=== PATIENT | male | born 1960 | race Caucasian/White ===

== ENCOUNTER 2016-08-18 06:45 | Day surgery (SDC) | payer OTHER ==
[~2016-08-18] VITALS: Ht 177.8 cm; Wt 86.2 kg
[~2016-08-18 06:45] MED LIST: ALLEGRA ALLERG180 MG PO; ASPIR 8181 M1 PO; ATORVASTATIN CA80 MG PO; DEXAMETHASONE1 MG PO; Habitrol,Nicoderm CQ TD; ISOSORBIDE MONO30 MG PO; LEVO-T137 MCG PO; LEVOTHYROXINE50 MCG PO; LOPRESSOR12.5 MG PO; Levothroid,Synthroid PO; METOPROLOL SUCC50 MG PO; MULTIVITAMIN1 EAC2 PO; NAPROSYN500 MG PO; NITROSTAT,NITR0.4 M1 SL; PEN-VEE K,VEET500 MG PO; PLAVIX75 MG PO; PREDNISONE20 MG PO; Proventil,Ventolin H IH; SPIRIVA1 INHALATI IH; VENTOLIN HFA18 GM IH; ZANTAC150 MG PO; Zestril,Prinivil PO; Zocor PO
== END 2016-08-18 08:55 | disposition home or self-care (01) ==
LOC: PAIN 06:45 → SDC 07:30 → PAIN 08:55
DX: M47.812 Spondylosis without myelopathy or radiculopathy, cervical region (principal); F41.9 Anxiety disorder, unspecified; M50.20 Other cervical disc displacement, unspecified cervical region; M79.1 Myalgia; F17.200 Nicotine dependence, unspecified, uncomplicated; I25.10 Atherosclerotic heart disease of native coronary artery without angina pectoris; Z95.5 Presence of coronary angioplasty implant and graft; Z95.1 Presence of aortocoronary bypass graft; G89.29 Other chronic pain; J43.9 Emphysema, unspecified; J44.9 Chronic obstructive pulmonary disease, unspecified; E78.5 Hyperlipidemia, unspecified; E03.9 Hypothyroidism, unspecified; E06.3 Autoimmune thyroiditis; I25.2 Old myocardial infarction; Z79.82 Long term (current) use of aspirin
CPT/HCPCS: J1030; J2250; J3010; S0020

== ENCOUNTER 2016-08-25 07:11 | Day surgery (SDC) | payer OTHER ==
[~2016-08-25] VITALS: Ht 177.8 cm; Wt 86.2 kg
== END 2016-08-25 08:57 | disposition home or self-care (01) ==
LOC: PAIN 07:11 → SDC 08:00 → PAIN 08:00
DX: M50.11 Cervical disc disorder with radiculopathy, high cervical region (principal); M50.121 Cervical disc disorder at C4-C5 level with radiculopathy; M54.5 Low back pain; M25.512 Pain in left shoulder; G89.29 Other chronic pain; J45.909 Unspecified asthma, uncomplicated; E03.9 Hypothyroidism, unspecified; I25.2 Old myocardial infarction; Z95.5 Presence of coronary angioplasty implant and graft; R73.03 Prediabetes; F17.210 Nicotine dependence, cigarettes, uncomplicated; Z79.82 Long term (current) use of aspirin; Z95.1 Presence of aortocoronary bypass graft; Z79.02 Long term (current) use of antithrombotics/antiplatelets; Z79.899 Other long term (current) drug therapy
CPT/HCPCS: J1030; J2250; J3010; S0020

== ENCOUNTER 2016-11-30 06:53 | Day surgery (SDC) | payer OTHER ==
[~2016-11-30] VITALS: Ht 177.8 cm; Wt 93.9 kg
== END 2016-11-30 09:03 | disposition home or self-care (01) ==
LOC: PAIN 06:53 → SDC 07:30 → PAIN 09:03 → SDC 12-03 07:30
PROC: 01513ZZ Destruction of Cervical Nerve, Percutaneous Approach (ICD-10-PCS; principal; 2016-11-30)
DX: M47.22 Other spondylosis with radiculopathy, cervical region (principal); M12.88 Other specific arthropathies, not elsewhere classified, other specified site; F41.9 Anxiety disorder, unspecified; F17.200 Nicotine dependence, unspecified, uncomplicated; I25.10 Atherosclerotic heart disease of native coronary artery without angina pectoris; Z95.5 Presence of coronary angioplasty implant and graft; Z95.1 Presence of aortocoronary bypass graft; G89.29 Other chronic pain; M54.5 Low back pain; E03.9 Hypothyroidism, unspecified; E78.5 Hyperlipidemia, unspecified; Z79.82 Long term (current) use of aspirin
CPT/HCPCS: J1030; J2250; J3010; S0020

== ENCOUNTER 2016-12-07 07:48 | Day surgery (SDC) | payer OTHER ==
[~2016-12-07] VITALS: Ht 177.8 cm; Wt 93.9 kg
== END 2016-12-07 09:57 | disposition home or self-care (01) ==
LOC: PAIN 07:48
DX: M47.22 Other spondylosis with radiculopathy, cervical region (principal); M50.11 Cervical disc disorder with radiculopathy, high cervical region; M54.2 Cervicalgia; G89.29 Other chronic pain; M54.5 Low back pain; E78.5 Hyperlipidemia, unspecified; I25.10 Atherosclerotic heart disease of native coronary artery without angina pectoris; J44.9 Chronic obstructive pulmonary disease, unspecified; E03.9 Hypothyroidism, unspecified; Z95.1 Presence of aortocoronary bypass graft; Z95.5 Presence of coronary angioplasty implant and graft; F17.200 Nicotine dependence, unspecified, uncomplicated; Z79.82 Long term (current) use of aspirin; Z79.02 Long term (current) use of antithrombotics/antiplatelets; E27.8 Other specified disorders of adrenal gland
CPT/HCPCS: J1030; J2250; J3010; S0020

== ENCOUNTER 2017-01-02 22:01 | Emergency (ER) | payer OTHER ==
[~2017-01-02] VITALS: Ht 177.8 cm; Wt 93.5 kg
[2017-01-02] MEDS ORDERED: AMOXICILLIN500 MG PO (22:50)
[2017-01-02] MEDS ORDERED: METOPROLOL SUCC50 MG PO (22:56)
[2017-01-02 23:10] LABS: HEMATOCRIT 43.6 % (38.0-50.0); MCH 31.1 PG (29.0-34.0); MCHC 33.7 G/DL (30.0-36.0); MCV 92.4 FL (86-99); MEAN PLAT.VOLUME 9.5 uM^3 (9.0-12.4); PLATELET COUNT 284 K/uL (156-360); RBC DIS.WIDTH-CV 12.8 % (11.8-14.6); RBC DIS.WIDTH-SD 43.7 % (39-53); RED BLOOD COUNT 4.72 M/uL (4.00-5.50); WHITE BLOOD COUNT 9.3 K/uL (4.1-10.2)
[2017-01-02 23:23] LABS: CHLORIDE 107 mEq/L (99-109); POTASSIUM 4.4 mEq/L (3.7-5.4); SODIUM 146 mEq/L (136-147)
[2017-01-02 23:25] LABS: GLUCOSE 96 mg/dL (70-99)
[2017-01-02 23:27] LABS: ANION GAP 11 MEQ/L (2-14); TOTAL BILIRUBIN 0.7 mg/dL (0.0-1.0)
[2017-01-02 23:29] LABS: ALKALINE PHOSPHATASE 153 IU/L (3-129); GFR ESTIMATE (CALCULATED) > 59 mL/min/
[2017-01-02 23:30] LABS: UREA NITROGEN (BUN) 20 mg/dL (9-23)
[2017-01-03 01:03] LABS: ERTH.SED.RATE 17 MM/HR (0-20)
[2017-01-03] MEDS ORDERED: PERCOCET 5/31 TABLET PO (01:24)
[2017-01-03] MEDS ORDERED: CLEOCIN300 MG PO (01:24)
[2017-01-03] MEDS ORDERED: MOTRIN800 MG PO (01:28)
[2017-01-03 01:45] VITALS: BP 112/70
[2017-01-03 02:21] LABS: C-REACTIVE PROTEIN 4.5 MG/L (0-10)
== END 2017-01-03 01:46 | disposition home or self-care (01) ==
LOC: EME 22:01 → EXP 22:01
DX: K04.7 Periapical abscess without sinus (principal); R51 Headache; R68.84 Jaw pain; J45.909 Unspecified asthma, uncomplicated; I25.2 Old myocardial infarction; Z95.1 Presence of aortocoronary bypass graft; Z79.82 Long term (current) use of aspirin; F17.200 Nicotine dependence, unspecified, uncomplicated
CPT/HCPCS: 80053; 85027; 85651; 86140; 99281; 99284

== ENCOUNTER 2017-06-06 21:57 | Emergency (ER) | payer OTHER ==
[~2017-06-06] VITALS: Ht 177.8 cm; Wt 94.2 kg
[~2017-06-06 21:57] MED LIST changes: +AMOXICILLIN500 MG PO; +CLEOCIN300 MG PO; +MOTRIN800 MG PO; +PERCOCET 5/31 TABLET PO
[2017-06-07] MEDS ORDERED: MOTRIN600 MG PO (00:06)
[2017-06-07 00:13] VITALS: BP 136/87
== END 2017-06-07 00:13 | disposition home or self-care (01) ==
LOC: EME 21:57
DX: S42.142A Displaced fracture of glenoid cavity of scapula, left shoulder, initial encounter for closed fracture (principal); S20.229A Contusion of unspecified back wall of thorax, initial encounter; Y00.XXXA Assault by blunt object, initial encounter; Y93.01 Activity, walking, marching and hiking; Y92.89 Other specified places as the place of occurrence of the external cause; Y07.9 Unspecified perpetrator of maltreatment and neglect
CPT/HCPCS: 73030; 99281; 99284

== ENCOUNTER 2017-07-13 19:45 | Emergency (ER) | payer OTHER ==
[~2017-07-13] VITALS: Ht 177.8 cm; Wt 94.0 kg
[~2017-07-13 19:45] MED LIST changes: +MOTRIN600 MG PO
[2017-07-13 21:28] LABS: HEMATOCRIT 42.6 % (38.0-50.0); HEMOGLOBIN 14.5 G/DL (12.5-16.6); MCH 31.5 PG (29.0-34.0); MCV 92.4 FL (86-99); PLATELET COUNT 250 K/uL (156-360); RBC DIS.WIDTH-CV 13.2 % (11.8-14.6); RBC DIS.WIDTH-SD 44.3 % (39-53); RED BLOOD COUNT 4.61 M/uL (4.00-5.50); WHITE BLOOD COUNT 9.6 K/uL (4.1-10.2)
[2017-07-13 21:32] LABS: CHLORIDE 109 mEq/L (99-109); POTASSIUM 4.4 mEq/L (3.7-5.4); SODIUM 145 mEq/L (136-147)
[2017-07-13 21:33] LABS: GLUCOSE 70 mg/dL (70-99)
[2017-07-13 21:37] LABS: CREATININE 1.3 mg/dL (0.6-1.3); GFR ESTIMATE (CALCULATED) > 59 mL/min/ (58.99-99999)
[2017-07-13 21:38] LABS: UREA NITROGEN (BUN) 15 mg/dL (9-23)
[2017-07-13 21:50] LABS: TROP-I INTERPRETATION NEGATIVE; TROPONIN-I < 0.01 ng/mL (0.0-0.30)
[2017-07-13 22:59] VITALS: BP 103/68
== END 2017-07-13 23:01 | disposition home or self-care (01) ==
LOC: EME → EDBD 19:45 → EME 19:45
PROVIDERS: Emergency Medicine
DX: R55 Syncope and collapse (principal); E86.0 Dehydration; T44.7X5A Adverse effect of beta-adrenoreceptor antagonists, initial encounter; I10 Essential (primary) hypertension; I25.2 Old myocardial infarction; Z95.1 Presence of aortocoronary bypass graft; Z79.02 Long term (current) use of antithrombotics/antiplatelets; Z79.82 Long term (current) use of aspirin; F17.200 Nicotine dependence, unspecified, uncomplicated
CPT/HCPCS: 71046; 80048; 84484; 85027; 93005; 99281; 99285

== ENCOUNTER 2017-08-09 13:32 | Emergency (ER) | payer OTHER ==
[~2017-08-09] VITALS: Ht 175.3 cm; Wt 92.6 kg
[2017-08-09] MEDS ORDERED: ERYTHROMYC1 APPLICAT RIGHT EYE (15:43)
[2017-08-09 16:04] VITALS: BP 131/89
== END 2017-08-09 16:15 | disposition home or self-care (01) ==
LOC: EME 13:32
DX: S05.01XA Injury of conjunctiva and corneal abrasion without foreign body, right eye, initial encounter (principal); H10.89 Other conjunctivitis; W22.8XXA Striking against or struck by other objects, initial encounter; J45.909 Unspecified asthma, uncomplicated; I25.2 Old myocardial infarction; Z95.1 Presence of aortocoronary bypass graft; F17.200 Nicotine dependence, unspecified, uncomplicated; Z79.82 Long term (current) use of aspirin
CPT/HCPCS: 99281; 99284